=== PATIENT | female | born 1950 | race Caucasian/White ===

== ENCOUNTER 2018-08-13 06:12 | Day surgery (SDC) | payer MEDICARE, OTHER ==
[2018-08-13] MEDS ORDERED: Sodium Tetradecyl Sulfate 1% 20 MG/2 ML SDV ONE (06:45)
[2018-08-13] MEDS ORDERED: Sodium Chloride 0.9% 0 ML ONE (06:45)
[2018-08-13] MEDS ORDERED: Lidocaine 1% with EPINEPHrine 1:100,000 50 ML MDV ONE (06:45)
[2018-08-13] MEDS ORDERED: fentaNYL 100 MCG/2 ML SDV ONE (07:11)
[2018-08-13] MEDS ORDERED: Propofol 200 MG/20 ML SDV ONE ×2 (07:11→08:11)
[2018-08-13] MEDS ORDERED: Midazolam 1 MG/ML 2 ML SDV ONE (07:11)
[2018-08-13] MEDS: Sodium Chloride 0.9% 1,000 ML IV SCH (07:18)
[2018-08-13] MEDS: Lidocaine 1% w/EPINEPHrine 50 ML, Sodium Bicarbonate 5 MEQ in Sodium Chloride 0.9% 950 ML INJECT SCH (08:34)
[2018-08-13] MEDS ORDERED: Lidocaine 1% w/EPINEPHrine 50 ML, Sodium Bicarbonate 5 MEQ in Sodium Chloride 0.9% 950 ML INJECT SCH (09:00)
[2018-08-13] MEDS: Ibuprofen 600 MG Tab PO ONE (09:20)
--- NOTE | 2018-08-14 07:41 | OR ---
DATE OF PROCEDURE: 08/13/2018 SURGEON: Riaz Black MD PROCEDURE: This is an RFA procedure report. PROCEDURE IN DETAIL: The patient was brought to the operating theater, prepped and draped. Unfortunately, a technical/mechanical failure of the RFA generator device precluded any procedure to be performed today. No sheaths, wires, or needles were inserted into the patient's legs during this procedure, due to failure of the generator device. The patient's legs were prepped and draped. They were then taken down, washed, dressed and a Cob[place] 2 was then reapplied on the right. The patient tolerated this aspect well. Riaz Black MD /[id number]
== END 2018-08-13 09:56 | disposition home or self-care (01) ==
LOC: JP.SDS 06:12
PROVIDERS: ATTEND Surgery
DX: M79.89 Other specified soft tissue disorders (principal); I11.0 Hypertensive heart disease with heart failure; I50.22 Chronic systolic (congestive) heart failure; I42.9 Cardiomyopathy, unspecified; E66.9 Obesity, unspecified; Z68.36 Body mass index [BMI] 36.0-36.9, adult; Z88.8 Allergy status to other drugs, medicaments and biological substances; Z86.718 Personal history of other venous thrombosis and embolism; Z53.8 Procedure and treatment not carried out for other reasons
CPT/HCPCS: A9270; J2250; J2704; J3010; J7030; J1642

== ENCOUNTER 2019-10-01 17:55 | Emergency (ER) | payer MEDICARE, OTHER ==
[2019-10-01] MEDS ORDERED: Cyclobenzaprine 10 MG Tab PO ONE (19:25)
[2019-10-01] MEDS ORDERED: Ketorolac 30 MG/ML SDV IM ONE (19:25)
--- NOTE | 2019-10-01 19:30 | EDM.PDOC ---
ED HPI GENERAL MEDICAL PROBLEM - General Chief Complaint: Headache Stated Complaint: MIGRAINE Time Seen by Provider: 10/01/19 19:15 Source of Information: Reports: Patient, Old Records History Limitations: Reports: No Limitations - History of Present Illness INITIAL COMMENTS - FREE TEXT/NARRATIVE: 68 yo female here with a L sided JAEGER and L sided neck pain waxing and waning for a couple weeks. Has not been to her primary. No photophobia, nausea, or fever. No recent head or neck injury. Has a pHx of migraine, last about 2 yrs ago. Has a hx of neck arthritis. Turning her head worsens the neck pain. Last took acetaminophen last night without relief. Has been taking some Aleve with partial relief, but none in the last 24 hrs. Onset: Gradual Onset Date: 09/17/19 Duration: Week(s): (2), Waxing/Waning Location: Reports: Head, Neck Quality: Reports: Ache Severity: Moderate Improves with: Reports: Medication (Aleve reduces) Worsens with: Reports: Other (unsure) Context: Reports: Other (See HPI) Associated Symptoms: Reports: Headaches. 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: Other (see below) (none) headache Pain Score (Numeric/FACES): 5 - Related Data Allergies Allergy/AdvReac Type Severity Reaction Status Date / Time lisinopril Allergy Cough Verified 10/01/19 19:12 Home Meds: Home Meds Aspirin [Adult Low Dose Aspirin EC] 81 mg PO DAILY 08/11/18 [History] Calcium Carbonate/Vitamin D3 [Calcium 500 + Vit D 400] 1 tab PO DAILY 08/11/18 [History] Losartan [Cozaar] 50 mg PO DAILY 08/11/18 [History] Metoprolol Succinate [Toprol XL] 25 mg PO DAILY 08/11/18 [History] Multivit with Min #53/FA/K/Q10 [Dekas Plus Softgel] 1 cap PO DAILY 08/11/18 [History] [place]-3/DHA/Epa/Fish Oil [[place] 3 500 Softgel] 2,000 mg PO DAILY 08/11/18 [History] Simvastatin [Zocor] 20 mg PO DAILY 08/11/18 [History] Cyclobenzaprine [Flexeril] 5 - 10 mg PO TID PRN #14 tab 10/01/19 [Rx] Past Medical History HEENT History: Reports: Allergic Rhinitis, Impaired Vision Cardiovascular History: Reports: Blood Clots/VTE/DVT, Heart Failure, High Cholesterol, Hypertension, SOB on Exertion Gastrointestinal History: Reports: Colon Polyp Genitourinary History: Reports: UTI, 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: Dysfunctional Uterine Bleeding, Spontaneous Musculoskeletal History: Reports: Back Pain, Chronic, Fracture, Osteoarthritis Neurological History: Reports: Migraines, Seizure Psychiatric History: Reports: Anxiety, Depression Endocrine/Metabolic History: Reports: Obesity/BMI 30+ Dermatologic History: Reports: Other (See Below) Other Dermatologic History: RIGHT ANKLE WOUND - Infectious Disease History Infectious Disease History: Reports: Measles - Past Surgical History GI Surgical History: Reports: Colonoscopy Female Surgical History: Reports: Breast Biopsy, D&C, Hysterectomy, Salpingo- Oophorectomy Endocrine Surgical History: Reports: None Neurological Surgical History: Reports: None Musculoskeletal Surgical History: Reports: Other (See Below) Other Musculoskeletal Surgeries/Procedures:: leg fx/plate in left knee Dermatological Surgical History: Reports: Other (See Below) Social & Family History - Family History Family Medical History: Noncontributory - Tobacco Use Smoking Status *Q: Never Smoker - Caffeine Use Caffeine Use: Reports: Coffee - Recreational Drug Use Recreational Drug Use: No ED ROS GENERAL - Review of Systems Review Of Systems: See Below Constitutional: Reports: No Symptoms HEENT: Reports: No Symptoms Respiratory: Reports: No Symptoms Cardiovascular: Reports: No Symptoms GI/Abdominal: Reports: No Symptoms. Denies: Nausea : Reports: No Symptoms Musculoskeletal: Reports: Neck Pain (L side) Skin: Reports: No Symptoms Neurological: Reports: Headache (L side). Denies: Confusion, Dizziness, Numbness, Seizure, Syncope, Tingling, Trouble Speaking, Difficulty Walking, Change in Speech, Gait Disturbance Psychiatric: Reports: No Symptoms - Physical Exam Exam: See Below Exam Limited By: No Limitations General Appearance: Alert, WD/WN, No Apparent Distress Eye Exam: Bilateral Eye: Normal Inspection Ears: Normal External Exam, Normal Canal, Hearing Grossly Normal, Normal TMs Nose: Normal Inspection, No Blood Throat/Mouth: Normal Inspection, Normal Lips, Normal Oropharynx, Normal Voice, No Airway Compromise Head Exam: Atraumatic, Normocephalic Neck: Normal Inspection, Limited Range of Motion (only slight reduction in ROM), Tender Lateral (L side). No: Supple, Non-Tender, Full Range of Motion, Lymphadenopathy (R), Lymphadenopathy (L), Tender Midline Respiratory/Chest: No Respiratory Distress, Lungs Clear, Normal Breath Sounds, No Accessory Muscle Use Cardiovascular: Regular Rate, Rhythm, No Edema Neuro Exam (Abbreviated): Alert, Oriented, CN II-XII Intact, Normal Cognition, No Motor/Sensory Deficits Back Exam: Normal Inspection. No: CVA Tenderness (R), CVA Tenderness (L) Extremities: Normal Inspection Psychiatric: Normal Affect, Normal Mood Skin Exam: Warm, Dry, Intact, Normal Color, No Rash Course - Vital Signs Last Recorded V/S: Last Vital Signs Temp 36.1 C 10/01/19 19:16 Pulse 58 L 10/01/19 19:16 Resp 16 10/01/19 19:16 BP 163/92 H 10/01/19 19:16 Pulse Ox 100 10/01/19 19:16 - Orders/Labs/Meds Meds: Medications Discontinued Medications Generic Name Dose Route Start Last Admin Trade Name Mitzy PRN Reason Stop Dose Admin Cyclobenzaprine HCl 10 mg 10/01/19 19:25 10/01/19 19:34 Flexeril PO 10/01/19 19:26 10 mg ONETIME ONE Administration Ketorolac Tromethamine 30 mg 10/01/19 19:25 10/01/19 19:34 Toradol IM 10/01/19 19:26 30 mg ONETIME ONE Administration - Re-Assessments/Exams Free Text/Narrative Re-Assessment/Exam: 10/01/19 19:55 Headache gone. Departure - Departure Time of Disposition: 20:00 Disposition: Home, Self-Care 01 Condition: Good Clinical Impression: Neck pain Headache Qualifiers: Headache type: unspecified Headache chronicity pattern: acute headache Intractability: not intractable Qualified Code(s): R51 - Headache - Discharge Information *PRESCRIPTION DRUG MONITORING PROGRAM REVIEWED*: No *COPY OF PRESCRIPTION DRUG MONITORING REPORT IN PATIENT BLANCA: No Referrals: Shelley Guadalupe DO [Primary Care Provider] - Forms: ED Department Discharge Additional Instructions: Take Flexeril 5-10 mg every 8 hrs as needed for neck pain/headache. Add Aleve 2 every 12 hrs with food and/or acetaminophen up to 1000 mg every 6 hrs as needed or continued pain. Recheck with your provider early this next week. Sepsis Event Note (ED) - Evaluation Sepsis Screening Result: No Definite Risk - Focused Exam Vital Signs: Vital Signs Temp Pulse Resp BP Pulse Ox 10/01/19 19:16 36.1 C 58 L 16 163/92 H 100 10/01/19 19:14 36.1 C 58 L 16 163/92 H 100
== END 2019-10-01 20:03 | disposition home or self-care (01) ==
LOC: JP.ED 17:55
DX: R51 Headache (principal); M54.2 Cervicalgia; I11.0 Hypertensive heart disease with heart failure; I50.9 Heart failure, unspecified; E78.00 Pure hypercholesterolemia, unspecified; M19.90 Unspecified osteoarthritis, unspecified site; E66.9 Obesity, unspecified; Z68.37 Body mass index [BMI] 37.0-37.9, adult; Z88.8 Allergy status to other drugs, medicaments and biological substances; Z79.82 Long term (current) use of aspirin; Z79.899 Other long term (current) drug therapy
CPT/HCPCS: 96372; 99283; A9270; J1885

== ENCOUNTER 2020-09-15 05:20 | Emergency (ER) | payer MEDICARE, OTHER ==
[2020-09-15] MEDS ORDERED: Ketorolac 30 MG/ML SDV IVPUSH ONE (05:47)
[2020-09-15] MEDS ORDERED: Sodium Chloride 0.9% 10 ML Syringe FLUSH PRN (05:48)
[2020-09-15] MEDS ORDERED: diphenhydrAMINE 50 MG/ML SDV IVPUSH ONE (05:48)
[2020-09-15] MEDS ORDERED: Prochlorperazine 10 MG/2 ML SDV IVPUSH ONE (05:48)
--- NOTE | 2020-09-15 05:51 | EDM.PDOC ---
<OfficerTang - Last Filed: 09/15/20 05:49> ED HPI GENERAL MEDICAL PROBLEM - General Chief Complaint: Headache Stated Complaint: HEADACHE Time Seen by Provider: 09/15/20 05:44 Source of Information: Reports: Patient, RN Notes Reviewed History Limitations: Reports: No Limitations - History of Present Illness INITIAL COMMENTS - FREE TEXT/NARRATIVE: 69-year-old female presents emergency department day complaint of headache, she believes that the migraine is typical for her she has been having ongoing headache for the last 3 days unable to break it, she is nauseated the light does bother her Headache Pain Score (Numeric/FACES): 5 - Related Data Allergies Allergy/AdvReac Type Severity Reaction Status Date / Time lisinopril Allergy Cough Verified 09/15/20 05:32 Home Meds: Home Meds Aspirin [Adult Low Dose Aspirin EC] 81 mg PO DAILY 08/11/18 [History] Calcium Carbonate/Vitamin D3 [Calcium 500 + Vit D 400] 1 tab PO DAILY 08/11/18 [History] Losartan [Cozaar] 50 mg PO DAILY 08/11/18 [History] Metoprolol Succinate [Toprol XL] 25 mg PO DAILY 08/11/18 [History] Multivit with Min #53/FA/K/Q10 [Dekas Plus Softgel] 1 cap PO DAILY 08/11/18 [History] [place]-3/DHA/Epa/Fish Oil [[place] 3 500 Softgel] 2,000 mg PO DAILY 08/11/18 [History] Simvastatin [Zocor] 20 mg PO DAILY 08/11/18 [History] Past Medical History HEENT History: Reports: Allergic Rhinitis, Impaired Vision Cardiovascular History: Reports: Blood Clots/VTE/DVT, Heart Failure, High Cholesterol, Hypertension, SOB on Exertion Gastrointestinal History: Reports: Colon Polyp Genitourinary History: Reports: UTI, 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 Uterine Bleeding, Spontaneous Musculoskeletal History: Reports: Back Pain, Chronic, Fracture, Osteoarthritis Neurological History: Reports: Migraines, Seizure Psychiatric History: Reports: Anxiety, Depression Endocrine/Metabolic History: Reports: Obesity/BMI 30+ Dermatologic History: Reports: Other (See Below) Other Dermatologic History: RIGHT ANKLE WOUND - Infectious Disease History Infectious Disease History: Reports: Measles - Past Surgical History HEENT Surgical History: Reports: None Cardiovascular Surgical History: Reports: None GI Surgical History: Reports: Colonoscopy Female Surgical History: Reports: Breast Biopsy, D&C, Hysterectomy, Salpingo- Oophorectomy Endocrine Surgical History: Reports: None Neurological Surgical History: Reports: None Musculoskeletal Surgical History: Reports: Other (See Below) Other Musculoskeletal Surgeries/Procedures:: leg fx/plate in left knee Dermatological Surgical History: Reports: Other (See Below) Social & Family History - Family History Family Medical History: No Pertinent Family History - Tobacco Use Tobacco Use Status *Q: Never Tobacco User - Caffeine Use Caffeine Use: Reports: Coffee - Recreational Drug Use Recreational Drug Use: No ED ROS GENERAL - Review of Systems Review Of Systems: See Below Constitutional: Denies: Fever HEENT: Reports: Eye Pain Respiratory: Reports: No Symptoms Cardiovascular: Reports: No Symptoms GI/Abdominal: Reports: Nausea Neurological: Reports: Headache - Physical Exam Exam: See Below Exam Limited By: No Limitations General Appearance: Alert, WD/WN, No Apparent Distress Eye Exam: Bilateral Eye: Normal Fundi, Normal Inspection, PERRL Respiratory/Chest: No Respiratory Distress Departure - Departure Disposition: Home, Self-Care 01 Clinical Impression: Migraine Qualifiers: Migraine type: unspecified Status migrainosus presence: without status migrainosus Intractability: not intractable Qualified Code(s): G43.909 - M igraine, unspecified, not intractable, without status migrainosus - Discharge Information Referrals: PCP,None [Primary Care Provider] - Forms: ED Department Discharge Additional Instructions: No driving today. Continue your usual medications. F/U with your provider within the week for recheck. Sepsis Event Note (ED) - Evaluation Sepsis Screening Result: No Definite Risk <Saji Marroquin - Last Filed: 09/15/20 07:50> Course - Vital Signs Last Recorded V/S: Last Vital Signs Temp 36.7 C 09/15/20 05:35 Pulse 67 09/15/20 05:35 Resp 16 09/15/20 05:35 BP 133/62 09/15/20 05:35 Pulse Ox 99 09/15/20 05:35 - Orders/Labs/Meds Orders: Active Orders 24 hr Category Date Time Status Peripheral IV Care [RC] . DIRECTED Care 09/15/20 05:48 Active Sodium Chloride 0.9% [Normal Saline] 1,000 ml Med 09/15/20 06:00 Active IV ASDIRECTED Sodium Chloride 0.9% [Saline Flush] Med 09/15/20 05:48 Active 10 ml FLUSH ASDIRECTED PRN Peripheral IV Insertion Adult [OM.PC] Urgent Oth 09/15/20 05:47 Ordered Medication Orders Sodium Chloride (Normal Saline) 1,000 mls @ 500 mls/hr IV ASDIRECTED CIERA Last Admin: 09/15/20 05:58 Dose: 500 mls/hr Documented by: ELENO Sodium Chloride (Sodium Chloride 0.9% 10 Ml Syringe) 10 ml FLUSH ASDIRECTED PRN PRN Reason: Keep Vein Open Last Admin: 09/15/20 06:02 Dose: 10 ml Documented by: ELENO Meds: Medications Generic Name Dose Route Start Last Admin Trade Name Freq PRN Reason Stop Dose Admin Sodium Chloride 1,000 mls @ 500 mls/hr 09/15/20 06:00 09/15/20 05:58 Normal Saline IV 500 mls/hr ASDIRECTED CIERA Administration Sodium Chloride 10 ml 09/15/20 05:48 09/15/20 06:02 Sodium Chloride 0.9% 10 Ml Syringe FLUSH 10 ml ASDIRECTED PRN Administration Keep Vein Open Discontinued Medications Generic Name Dose Route Start Last Admin Trade Name Freq PRN Reason Stop Dose Admin Dexamethasone 4 mg 09/15/20 06:26 09/15/20 06:40 Dexamethasone 4 Mg/Ml Sdv IVPUSH 09/15/20 06:27 4 mg ONETIME ONE Administration Diphenhydramine HCl 50 mg 09/15/20 05:48 09/15/20 06:06 Diphenhydramine 50 Mg/Ml Sdv IVPUSH 09/15/20 05:49 50 mg ONETIME ONE Administration Haloperidol Lactate 5 mg 09/15/20 06:26 09/15/20 06:42 Haloperidol Lactate 5 Mg/Ml Sdv IVPUSH 09/15/20 06:27 5 mg ONETIME ONE Administration Ketorolac Tromethamine 30 mg 09/15/20 05:47 09/15/20 06:02 Ketorolac 30 Mg/Ml Sdv IVPUSH 09/15/20 05:48 30 mg ONETIME ONE Administration Prochlorperazine Edisylate 5 mg 09/15/20 05:48 09/15/20 06:04 Prochlorperazine 10 Mg/2 Ml Sdv IVPUSH 09/15/20 05:49 5 mg ONETIME ONE Administration - Re-Assessments/Exams Free Text/Narrative Re-Assessment/Exam: 09/15/20 07:49 JAEGER now gone. Is sleepy. OK for discharge once she can find a ride. Departure - Departure Time of Disposition: 08:00 Condition: Good - Discharge Information *PRESCRIPTION DRUG MONITORING PROGRAM REVIEWED*: Not Applicable *COPY OF PRESCRIPTION DRUG MONITORING REPORT IN PATIENT BLANCA: Not Applicable Sepsis Event Note (ED) - Focused Exam Vital Signs: Vital Signs Temp Pulse Resp BP Pulse Ox 09/15/20 05:35 36.7 C 67 16 133/62 99
[2020-09-15] MEDS ORDERED: Sodium Chloride 0.9% 1,000 ML IV SCH (06:00)
[2020-09-15] MEDS ORDERED: Dexamethasone 4 MG/ML SDV IVPUSH ONE (06:26)
[2020-09-15] MEDS ORDERED: Haloperidol Lactate 5 MG/ML SDV IVPUSH ONE (06:26)
== END 2020-09-15 08:39 | disposition home or self-care (01) ==
LOC: JP.ED 05:20
DX: G43.909 Migraine, unspecified, not intractable, without status migrainosus (principal); I11.0 Hypertensive heart disease with heart failure; I50.9 Heart failure, unspecified; E78.00 Pure hypercholesterolemia, unspecified; M19.90 Unspecified osteoarthritis, unspecified site; E66.9 Obesity, unspecified; Z68.37 Body mass index [BMI] 37.0-37.9, adult; Z79.82 Long term (current) use of aspirin; Z79.899 Other long term (current) drug therapy; Z88.8 Allergy status to other drugs, medicaments and biological substances
CPT/HCPCS: 96374; 96375; 99283; J0780; J1100; J1200; J1630; J1885; J7030

== ENCOUNTER 2021-02-19 06:13 | Day surgery (SDC) | payer MEDICARE, OTHER ==
[2021-02-19] MEDS ORDERED: Sodium Chloride 0.9% 1,000 ML IV SCH (07:00)
[2021-02-19] MEDS ORDERED: Propofol 200 MG/20 ML SDV ONE (07:28)
[2021-02-19] MEDS ORDERED: Midazolam 1 MG/ML 2 ML SDV ONE (07:28)
[2021-02-19] MEDS ORDERED: fentaNYL 100 MCG/2 ML SDV ONE (07:28)
--- NOTE | 2021-02-19 10:13 | OR ---
DATE OF PROCEDURE: 02/19/2021 SURGEON: Riaz Black MD PROCEDURES: 1. Colonoscopy. 2. Internal hemorrhoid banding. FINDINGS: 1. Rectal polyp, approximately 2 mm, completely removed using cold biopsy forceps. 2. Prominent internal hemorrhoid which could have been the source of the rectal bleeding. 3. No definitive etiology of the bleeding as there was no active bleeding at this time. COMPLICATIONS: None. DISTRIBUTOR PUBLICATIONS: None. ANESTHESIA: MAC. PREOPERATIVE DIAGNOSIS: Rectal bleeding. POSTOPERATIVE DIAGNOSIS: Rectal bleeding. RISKS: Risks, benefits, alternatives, and limitations including, but not limited to infection, bleeding, perforation, false positives, false negatives were explained to the patient who wished to proceed. PROCEDURE IN DETAIL: The patient was placed in left lateral decubitus position. Digital rectal exam was performed without abnormality. Scope was introduced and advanced atraumatically to the ileocecal valve. A photo was taken of this. Scope was brought back to the ascending, transverse, descending colon, and retroflexed. No diverticulosis. No old or new blood. The aforementioned polyp was identified and completely removed. On retroflexion, the patient had a very prominent internal hemorrhoids which could have been the source of the bleeding. Therefore, this was internally banded x2 using standard technique in sequence. Greater than 8 minutes was spent removing the scope. The prep was acceptable, approximately 90% of the luminal surface could be seen. The patient tolerated the procedure well. Riaz Black MD /[id number]
== END 2021-02-19 10:09 | disposition home or self-care (01) ==
LOC: JP.SDS 06:13
PROVIDERS: ATTEND Surgery
DX: K64.8 Other hemorrhoids (principal); K62.1 Rectal polyp; I11.0 Hypertensive heart disease with heart failure; I50.9 Heart failure, unspecified
CPT/HCPCS: 45380; 45398; J2250; J2704; J3010; J7030

== ENCOUNTER 2022-08-27 21:36 | Emergency (ER) | payer MEDICARE, OTHER ==
[2022-08-27] MEDS ORDERED: Dexamethasone 4 MG/ML SDV IVPUSH ONE (22:24)
[2022-08-27] MEDS ORDERED: Ketorolac 30 MG/ML SDV IVPUSH ONE (22:24)
[2022-08-27] MEDS ORDERED: Prochlorperazine 10 MG/2 ML SDV IVPUSH ONE (22:24)
[2022-08-27] MEDS ORDERED: Ondansetron 4 MG/2 ML SDV IVPUSH ONE (23:03)
== END 2022-08-27 23:45 | disposition home or self-care (01) ==
LOC: JP.ED 21:36
DX: G43.909 Migraine, unspecified, not intractable, without status migrainosus (principal); E78.00 Pure hypercholesterolemia, unspecified; E66.9 Obesity, unspecified; Z68.36 Body mass index [BMI] 36.0-36.9, adult; Z88.8 Allergy status to other drugs, medicaments and biological substances; Z79.82 Long term (current) use of aspirin; Z79.899 Other long term (current) drug therapy; Z90.710 Acquired absence of both cervix and uterus
CPT/HCPCS: 96374; 96375; 99283-25; J0780; J1100; J1885; J2405

== ENCOUNTER 2023-02-15 22:53 | Emergency (ER) | payer MEDICARE, OTHER ==
[2023-02-16] MEDS ORDERED: fentaNYL 50 MCG/ML SDV IVPUSH ONE (00:29)
[2023-02-16] MEDS ORDERED: Naloxone 0.4 MG/ML SDV IVPUSH PRN (00:29)
[2023-02-16 00:36] LABS: BASOPHILS ABSOLUTE AUTO 0.03 K/uL (0.00-0.10); BASOPHILS PERCENT AUTO 0.5 % (0.1-1.3); EOSINOPHILS ABSOLUTE AUTO 0.13 K/uL (0.00-0.40); EOSINOPHILS PERCENT AUTO 2.4 % (0.0-5.4); HEMOGLOBIN 12.4 g/dL (11.2-15.5); IMMATURE GRAN PERCENT AUTO 0.4 % (0.0-0.7); LYMPHOCYTES ABSOLUTE AUTO 0.82 K/uL (0.8-3.3); MEAN CORPUSCULAR HEMOGLOBIN 30.1 pg (31.6-35.5); MEAN CORPUSCULAR HGB CONC 31.8 g/dL (31.6-35.5); MEAN CORPUSCULAR VOLUME 94.7 fL (81.4-99.0); MONOCYTES ABSOLUTE AUTO 0.57 K/uL (0.20-0.90); MONOCYTES PERCENT AUTO 10.4 % (3.3-12.6); NEUTROPHILS PERCENT AUTO 71.3 % (40.0-78.1); PLATELET COUNT,PLT 229 K/uL (130-375); RED BLOOD CELL COUNT 4.12 M/uL (3.77-5.24); WHITE BLOOD CELL COUNT,WBC 5.5 K/uL (3.2-11.0)
[2023-02-16 00:43] LABS: IMMATURE GRAN ABSOLUTE AUTO 0.02 K/uL (0.00-0.23)
[2023-02-16 00:52] LABS: A/G RATIO 1.2 (1.2-2.2); ALANINE AMINOTRANSFERASE,ALT 16 U/L (12-78); ALBUMIN 3.9 g/dL (3.4-5.0); ALKALINE PHOSPHATASE 77 U/L (46-116); ANION GAP 7.8 mmol/L (5.0-14.0); ASPARTATE AMNIOTRANSFERASE,AST 25 U/L (15-37); BLOOD UREA NITROGEN,BUN 21 mg/dL (7-18); C-REACTIVE PROTEIN 0.16 mg/dL (0.0-0.3); CALCIUM 9.2 mg/dL (8.5-10.1); CARBON DIOXIDE,CO2 30 mmol/L (21-32); CHLORIDE,CL 103 mmol/L (100-108); CREATININE 1.1 mg/dL (0.6-1.0); EST CRCL DRUG DOSING (CG) 47.32 mL/min; ESTIMATED GFR 54 mL/min (>60); GLUCOSE RANDOM 105 mg/dL (74-106); POTASSIUM,K 4.5 mmol/L (3.6-5.2); PROTEIN TOTAL,TP 7.2 g/dL (6.4-8.2); SODIUM,NA 141 mmol/L (140-148)
[2023-02-16] MEDS ORDERED: Sodium Chloride 0.9% 1,000 ML IV ONE (00:55)
[2023-02-16] MEDS ORDERED: Iopamidol 612 MG/ML 100 ML Bottle IV STA (00:56)
[2023-02-16] MEDS ORDERED: Sodium Chloride 0.9% 10 ML Syringe FLUSH STA (00:56)
[2023-02-16] MEDS: Sodium Chloride 0.9% 50 ML IV STA (01:11)
== END 2023-02-16 05:06 | disposition home or self-care (01) ==
LOC: JP.ED 22:53
DX: D73.5 Infarction of spleen (principal); E66.9 Obesity, unspecified; I11.0 Hypertensive heart disease with heart failure; I50.9 Heart failure, unspecified; E78.00 Pure hypercholesterolemia, unspecified; M19.90 Unspecified osteoarthritis, unspecified site; Z79.899 Other long term (current) drug therapy; Z79.82 Long term (current) use of aspirin; Z88.8 Allergy status to other drugs, medicaments and biological substances
CPT/HCPCS: 36415; 71045; 71045-26; 71250; 74177; 80053; 83605; 83690; 85025; 86140; 96374; 99284; 99284-25; J3010; J3490; Q9967

== ENCOUNTER 2024-04-21 02:22 | Inpatient (IN) | payer MEDICARE, OTHER ==
[2024-04-21] MEDS ORDERED: Sodium Chloride 0.9% 10 ML Syringe FLUSH PRN (02:58)
[2024-04-21 03:10] LABS: BASOPHILS PERCENT AUTO 0.6 % (0.1-1.3); EOSINOPHILS PERCENT AUTO 2.9 % (0.0-5.4); HEMATOCRIT 37.3 % (34.3-46.0); HEMOGLOBIN 12.2 g/dL (11.2-15.5); IMMATURE GRAN PERCENT AUTO 0.3 % (0.0-0.7); LYMPHOCYTES ABSOLUTE AUTO 0.51 K/uL (0.8-3.3); MEAN CORPUSCULAR HEMOGLOBIN 31.7 pg (31.6-35.5); MEAN CORPUSCULAR HGB CONC 32.7 g/dL (31.6-35.5); MEAN CORPUSCULAR VOLUME 96.9 fL (81.4-99.0); MONOCYTES ABSOLUTE AUTO 0.38 K/uL (0.20-0.90); MONOCYTES PERCENT AUTO 11.2 % (3.3-12.6); NEUTROPHILS ABSOLUTE AUTO 2.37 K/uL (1.0-7.6); PLATELET COUNT,PLT 157 K/uL (130-375); RED BLOOD CELL COUNT 3.85 M/uL (3.77-5.24); WHITE BLOOD CELL COUNT,WBC 3.4 K/uL (3.2-11.0)
[2024-04-21] MEDS: Sodium Chloride 0.9% 10 ML Syringe FLUSH PRN (03:32)
[2024-04-21 03:36] LABS: A/G RATIO 1.2 (1.2-2.2); ALANINE AMINOTRANSFERASE,ALT 26 U/L (12-78); ALBUMIN 3.6 g/dL (3.4-5.0); ALKALINE PHOSPHATASE 95 U/L (46-116); ANION GAP 6.9 mmol/L (5.0-14.0); ASPARTATE AMNIOTRANSFERASE,AST 31 U/L (15-37); BILIRUBIN TOTAL 2.1 mg/dL (0.2-1.0); BLOOD UREA NITROGEN,BUN 30 mg/dL (7-18); CALCIUM 8.4 mg/dL (8.5-10.1); CARBON DIOXIDE,CO2 32 mmol/L (21-32); CHLORIDE,CL 104 mmol/L (100-108); CREATININE 1.6 mg/dL (0.6-1.0); EST CRCL DRUG DOSING (CG) 32.06 mL/min; ESTIMATED GFR 34 mL/min (>60); GLUCOSE RANDOM 101 mg/dL (74-106); POTASSIUM,K 3.8 mmol/L (3.6-5.2); PRO B-TYPE NATRIUR PEPT,BNPPRO 8554 pg/mL (5-125); PROTEIN TOTAL,TP 6.5 g/dL (6.4-8.2); SODIUM,NA 143 mmol/L (140-148); TROPONIN I HIGH SENSITIVITY 53.7 pg/mL (<=60.3)
[2024-04-21 03:37] LABS: BASOPHILS ABSOLUTE AUTO 0.02 K/uL (0.00-0.10); IMMATURE GRAN ABSOLUTE AUTO 0.01 K/uL (0.00-0.23)
[2024-04-21] MEDS: Furosemide 40 MG/4 ML VIAL IVPUSH ONE (03:42)
[2024-04-21] MEDS ORDERED: Non-Formulary Medication 1 Each (Simvastatin [Zocor] 20 MG Tablet) PO SCH (09:00)
[2024-04-21] MEDS: Empagliflozin 10 MG Tab PO SCH (09:25)
[2024-04-21] MEDS: Aspirin 81 MG Tab.EC PO SCH (09:25)
[2024-04-21] MEDS: atorvaSTATin 10 MG Tab PO SCH (09:25)
[2024-04-21] MEDS: Calcium Carbonate/Vitamin D3 1500 MG-400 Units Tab PO SCH (09:25)
[2024-04-21] MEDS: Spironolactone 25 MG Tab PO SCH (09:25)
[2024-04-21] MEDS: Multivitamins with Iron/Calcium/Folic Acid/Minerals Tab PO SCH (09:25)
[2024-04-21] MEDS: Apixaban 5 MG Tab PO SCH (09:25)
[2024-04-21] MEDS: Carvedilol 3.125 MG Tab PO SCH (09:26)
[2024-04-21] MEDS: Docusate Sodium 100 MG Cap PO PRN (13:42)
[2024-04-21] MEDS: guaiFENesin/Dextromethorphan 100-10 MG/5 ML Soln 10 ML Cup PO PRN (13:42)
[2024-04-21] MEDS: Furosemide 20 MG/2 ML VIAL IVPUSH ONE (14:12)
[2024-04-21] MEDS: Melatonin 3 MG Tab PO PRN (20:32)
[2024-04-21] MEDS: Acetaminophen 325 MG Tab PO PRN (22:03)
[2024-04-22] MEDS: LORazepam 0.5 MG Tab PO ONE (01:38)
[2024-04-22 05:33] LABS: CALCIUM 8.7 mg/dL (8.5-10.1); CREATININE 1.6 mg/dL (0.6-1.0); EST CRCL DRUG DOSING (CG) 32.06 mL/min; POTASSIUM,K 3.5 mmol/L (3.6-5.2)
[2024-04-22 05:39] LABS: ANION GAP 9.5 mmol/L (5.0-14.0)
[2024-04-22] MEDS: Potassium Chloride 20 MEQ Tab.ER PO ONE (08:44)
[2024-04-22] MEDS: Furosemide 40 MG/4 ML VIAL IVPUSH SCH (10:53)
[2024-04-22] MEDS: hydrOXYzine HCl 25 MG Tab PO PRN (14:58)
[2024-04-23] MEDS: LORazepam 0.5 MG Tab PO PRN (00:05)
[2024-04-23 05:43] LABS: ANION GAP 7.8 mmol/L (5.0-14.0); CREATININE 1.5 mg/dL (0.6-1.0); EST CRCL DRUG DOSING (CG) 34.2 mL/min; POTASSIUM,K 3.7 mmol/L (3.6-5.2)
[2024-04-23] MEDS: Furosemide 40 MG/4 ML VIAL IVPUSH SCH (11:42)
[2024-04-23] MEDS: LORazepam 0.5 MG Tab PO SCH (20:35)
[2024-04-24 05:13] LABS: CALCIUM 8.7 mg/dL (8.5-10.1); CREATININE 1.7 mg/dL (0.6-1.0); EST CRCL DRUG DOSING (CG) 30.18 mL/min; POTASSIUM,K 3.7 mmol/L (3.6-5.2)
[2024-04-24 05:18] LABS: ANION GAP 8.7 mmol/L (5.0-14.0)
[2024-04-25] MEDS ORDERED: Alendronate 70 MG Tab PO SCH (07:30)
== END 2024-04-24 11:00 | disposition home or self-care (01) | DRG 291 ==
LOC: JP.ED 02:22 → JP.MS 06:03
PROVIDERS: ADMIT Nurse Practitioner; ATTEND Internal Medicine
DX: I11.0 Hypertensive heart disease with heart failure (principal); I50.9 Heart failure, unspecified; I25.2 Old myocardial infarction; I13.0 Hypertensive heart and chronic kidney disease with heart failure and stage 1 through stage 4 chronic kidney disease, or unspecified chronic kidney disease; I50.43 Acute on chronic combined systolic (congestive) and diastolic (congestive) heart failure; Z95.0 Presence of cardiac pacemaker; E87.6 Hypokalemia; N18.32 Chronic kidney disease, stage 3b; G43.909 Migraine, unspecified, not intractable, without status migrainosus; F41.9 Anxiety disorder, unspecified; F32.A Depression, unspecified; Z68.33 Body mass index [BMI] 33.0-33.9, adult; E66.9 Obesity, unspecified; H54.7 Unspecified visual loss; E78.00 Pure hypercholesterolemia, unspecified; F15.90 Other stimulant use, unspecified, uncomplicated; I48.0 Paroxysmal atrial fibrillation; Z86.718 Personal history of other venous thrombosis and embolism; Z68.32 Body mass index [BMI] 32.0-32.9, adult; Z88.8 Allergy status to other drugs, medicaments and biological substances; Z79.82 Long term (current) use of aspirin; Z79.01 Long term (current) use of anticoagulants; Z79.02 Long term (current) use of antithrombotics/antiplatelets; Z79.899 Other long term (current) drug therapy; Z87.440 Personal history of urinary (tract) infections; Z87.81 Personal history of (healed) traumatic fracture; Z90.710 Acquired absence of both cervix and uterus; Z98.890 Other specified postprocedural states; Z95.810 Presence of automatic (implantable) cardiac defibrillator
CPT/HCPCS: 36415; 71045 ×2; 80053; 83880; 84484; 85025; 93005; 93010; 96374; 99285 ×2; J1940; 80048; 92610-GN; 99222; 99232; 99238; A9270-GY

== ENCOUNTER 2024-05-08 00:52 | Emergency (ER) | payer MEDICARE, OTHER ==
[2024-05-08 01:19] LABS: BASOPHILS PERCENT AUTO 0.5 % (0.1-1.3); EOSINOPHILS PERCENT AUTO 2.4 % (0.0-5.4); HEMATOCRIT 37.9 % (34.3-46.0); HEMOGLOBIN 12.5 g/dL (11.2-15.5); IMMATURE GRAN PERCENT AUTO 0.5 % (0.0-0.7); LYMPHOCYTES ABSOLUTE AUTO 0.67 K/uL (0.8-3.3); LYMPHOCYTES PERCENT AUTO 16.1 % (11.4-47.7); MEAN CORPUSCULAR HEMOGLOBIN 31.7 pg (31.6-35.5); MEAN CORPUSCULAR VOLUME 96.2 fL (81.4-99.0); MONOCYTES ABSOLUTE AUTO 0.43 K/uL (0.20-0.90); MONOCYTES PERCENT AUTO 10.3 % (3.3-12.6); NEUTROPHILS ABSOLUTE AUTO 2.93 K/uL (1.0-7.6); NEUTROPHILS PERCENT AUTO 70.2 % (40.0-78.1); PLATELET COUNT,PLT 162 K/uL (130-375); RED BLOOD CELL COUNT 3.94 M/uL (3.77-5.24); WHITE BLOOD CELL COUNT,WBC 4.2 K/uL (3.2-11.0)
[2024-05-08 01:20] LABS: BASOPHILS ABSOLUTE AUTO 0.02 K/uL (0.00-0.10); IMMATURE GRAN ABSOLUTE AUTO 0.02 K/uL (0.00-0.23)
[2024-05-08 01:49] LABS: A/G RATIO 1.2 (1.2-2.2); ALANINE AMINOTRANSFERASE,ALT 27 U/L (12-78); ALBUMIN 3.6 g/dL (3.4-5.0); ALKALINE PHOSPHATASE 99 U/L (46-116); ANION GAP 8.5 mmol/L (5.0-14.0); ASPARTATE AMNIOTRANSFERASE,AST 34 U/L (15-37); BILIRUBIN TOTAL 2.3 mg/dL (0.2-1.0); BLOOD UREA NITROGEN,BUN 28 mg/dL (7-18); CALCIUM 8.6 mg/dL (8.5-10.1); CARBON DIOXIDE,CO2 29 mmol/L (21-32); CHLORIDE,CL 105 mmol/L (100-108); CREATININE 1.6 mg/dL (0.6-1.0); EST CRCL DRUG DOSING (CG) 32.06 mL/min; ESTIMATED GFR 34 mL/min (>60); GLUCOSE RANDOM 100 mg/dL (74-106); POTASSIUM,K 4.3 mmol/L (3.6-5.2); PRO B-TYPE NATRIUR PEPT,BNPPRO 12747 pg/mL (5-125); PROTEIN TOTAL,TP 6.6 g/dL (6.4-8.2); SODIUM,NA 142 mmol/L (140-148)
[2024-05-08 01:51] LABS: APPEARANCE,URINE CLEAR (CLEAR); BILIRUBIN,URINE NEGATIVE (NEGATIVE); COLOR,URINE YELLOW (YELLOW); GLUCOSE,URINE 500 mg/dL (NEGATIVE); KETONES,URINE NEGATIVE (NEGATIVE); LEUKOCYTE ESTERASE,URINE NEGATIVE (NEGATIVE); NITRITE,URINE NEGATIVE (NEGATIVE); OCCULT BLOOD,URINE NEGATIVE (NEGATIVE); PH,URINE 5.5 (5.0-8.0); PROTEIN,URINE 100 mg/dL (NEGATIVE); UROBILINOGEN,URINE 0.2 EU/dL (0.2-1.0)
[2024-05-08 01:54] LABS: AMORPHOUS SEDIMENT,URINE NOT SEEN; BACTERIA,URINE FEW; EPITHELIAL CELLS,URINE FEW; MUCUS,URINE NOT SEEN; RBC,URINE 0-5 (0-5); WBC,URINE 0-5 (0-5)
[2024-05-08] MEDS: Furosemide 40 MG/4 ML VIAL IVPUSH ONE (01:55)
== END 2024-05-08 08:02 | disposition home or self-care (01) ==
LOC: JP.ED 00:52
DX: E87.70 Fluid overload, unspecified (principal); G47.30 Sleep apnea, unspecified; Z76.0 Encounter for issue of repeat prescription; I11.0 Hypertensive heart disease with heart failure; I50.9 Heart failure, unspecified; I25.2 Old myocardial infarction; E78.00 Pure hypercholesterolemia, unspecified; E66.9 Obesity, unspecified; Z90.710 Acquired absence of both cervix and uterus; Z79.899 Other long term (current) drug therapy; Z79.01 Long term (current) use of anticoagulants; Z79.82 Long term (current) use of aspirin; Z88.8 Allergy status to other drugs, medicaments and biological substances; Z68.32 Body mass index [BMI] 32.0-32.9, adult
CPT/HCPCS: 36415; 71046; 80053; 81001; 82947; 83880; 85025; 93005; 93010; 96374; 99284; 99285; J1940

== ENCOUNTER 2024-10-06 03:47 | Emergency (ER) | payer MEDICARE, OTHER ==
[2024-10-06] MEDS: Ketorolac 30 MG/ML SDV IM ONE (04:40)
[2024-10-06] MEDS: predniSONE 20 MG Tab PO ONE (04:46)
[2024-10-06] MEDS: Amoxicillin 500 MG Cap PO ONE (04:46)
== END 2024-10-06 04:52 | disposition home or self-care (01) ==
LOC: JP.ED 03:47
DX: J32.2 Chronic ethmoidal sinusitis (principal); I11.0 Hypertensive heart disease with heart failure; I50.9 Heart failure, unspecified; E78.00 Pure hypercholesterolemia, unspecified; K21.9 Gastro-esophageal reflux disease without esophagitis; Z90.710 Acquired absence of both cervix and uterus; Z88.8 Allergy status to other drugs, medicaments and biological substances; Z79.01 Long term (current) use of anticoagulants; Z79.899 Other long term (current) drug therapy
CPT/HCPCS: 96372; 99283; A9270; J1885; J7512